=== PATIENT | male | born 1990 | race Caucasian/White ===

== ENCOUNTER 2021-07-06 08:37 | Outpatient (CLI) | payer BC, SELFPAY ==
[2021-07-06 20:06] LABS: Cholesterol 236 mg/dL (0-200); HDL Direct 51 mg/dL; Triglycerides 139 mg/dL (<150)
[2021-07-06 20:16] LABS: LDL Cholesterol Direct 130 mg/dL
[2021-07-08 21:38] LABS: CRP, High Sensitivity 0.4 mg/L (***)
== END 2021-07-06 08:38 | disposition home or self-care (01) ==
PROVIDERS: PCP Family Medicine; Visit Provider Family Medicine
DX: Z00.00 Encounter for general adult medical examination without abnormal findings (principal); E78.5 Hyperlipidemia, unspecified; Z82.49 Family history of ischemic heart disease and other diseases of the circulatory system; R19.7 Diarrhea, unspecified
CPT/HCPCS: 36415; 80061; 86141

== ENCOUNTER 2021-07-08 11:02 | Outpatient (CLI) | payer BC, SELFPAY ==
[2021-07-08 21:42] LABS: IFOB Positive Control Positive; Immunochemical Fecal Occult Bl Negative (N)
[2021-07-12 17:40] LABS: Lactoferrin, Stool Negative (Negative)
== END 2021-07-08 11:03 | disposition home or self-care (01) ==
PROVIDERS: PCP Family Medicine; Visit Provider Family Medicine
DX: R19.7 Diarrhea, unspecified (principal); E78.5 Hyperlipidemia, unspecified; Z00.00 Encounter for general adult medical examination without abnormal findings
CPT/HCPCS: 82274; 83630; 87045; 87269; 87324; 87427; 89055

== ENCOUNTER 2021-08-11 01:20 | Day surgery (SDC) | payer BC, SELFPAY ==
[2021-08-02 13:20] VITALS: BMI 22.0
--- NOTE | 2021-08-02 13:27 | PC.NURSE ---
Report to the Outpatient Waiting Room, entrance under the green pavilion located off [facility], at time ___0900____ on date _08/11/21 . OR Time: ___1099 . - You and your visitor will be asked a series of questions to screen for COVID 19 for your protection. - A mask is required within the hospital. Preoperative COVID Testing Requirements: NONE No COVID Test needed if: (proof is required; if not received patient will have Rapid Test prior to entry) - Patient has received COVID Vaccine at least 14 days prior to procedure date or - Patient has positive COVID test result within last 90 days of surgery date. COVID Test needed if above criteria is not met If not COVID vaccinated a COVID test must be conducted within 72 hours of surgery and patient is asked to isolate self from time of testing until procedure. You will go to the [facility] for your COVID testing. The [facility] is located at the corner of [address] [facility]. You will only be called if COVID results are positive and your surgeon may reschedule your elective surgery date. Patients may have clear liquids (water, carbonated beverages, clear teas, apple juice) until 3 hours prior to surgery (0800 AM) with a maximum of 20 ounces. - No food from midnight until time of surgery - Infants may have breast milk until 4 hours before surgery, formula 6 hours prior to surgery. - Children will be allowed to drink immediately following surgery. If applicable, please bring a bottle or sippy cup to assist with drinking. Juice, water, soda, and popsicles are readily available. For infants on formula, please bring formula the day of surgery. Pacifiers are allowed. Take the following medications with a SIP of water the morning of surgery: ____N/A Medications to discontinue per physician N/A Date to take last dose Please no make-up, nail lao, hairspray, perfume, deodorant, or body powder the day of surgery. No jewelry (including any body piercings) or valuables the day of surgery, leave them at home. Please take a shower or bath the night before, or the morning of, surgery with an antibacterial soap. Wear comfortable, loose fitting clothing. Children are encouraged to wear pajamas. - Jewelry must be removed prior to entering the operating room. Rings and piercings that are not removed may be cut off. - The hospital will not accept responsibility for valuables. - Please leave all valuables, including medications, at home the day of surgery. If you are going home after surgery, a licensed test driver must drive you home. - NO public transportation without another adult. - We recommend that an adult stay with you for 24 hours following discharge. - We also recommend that you do not drive, make important decision, drink alcoholic beverages, or take any drugs that were not prescribed by your health care provider for at least 24 hours after your discharge time. For Pediatric surgeries, we recommend two adults accompany the child home (only one inside the building at this time). One visitor will be allowed to accompany the patient into the hospital. Patients visitor will be instructed to remain with patient at all times or leave the building. We will allow the visitor to come back to the postoperative area when patient is ready. Follow any additional instructions given to you from your surgeon. Telephone instructions given to ___PT and asked if any additional questions and then verbalized understanding. Patient advised to call surgeon office or pre surgery nurse liaison [phone] if any additional questions.
[2021-08-11] VITALS (9 sets, daily range): BP systolic 92–127; BP diastolic 54–72; PULSE 70–98; RESP 16–18; TEMP 36.4–36.5; O2SAT 99–100
[2021-08-11] MEDS: LACTATED RINGERS 1,000 ML 30 ML IV CONT ×2 (10:39→13:14)
--- NOTE | 2021-08-11 11:33 | P.PNAN_ITS ---
Anes - Initial Pre Proc Eval Procedure: Operation Date: 08/11/21 12:00 Proposed Procedures p Excision of Complicated Pilonidal Cyst - Bruce Pierre DO Date/Time: 08/11/21 11:33 Surgeon: Bruce Pierre DO Pre Op Diagnosis: pilonidal cyst Patient Data Age: 31 Gender: M Height: 1.83 m Weight: 74.8 kg Last Vital Signs Temp 36.4 C L 08/11/21 10:15 Pulse 89 08/11/21 10:15 Resp 16 08/11/21 10:15 BP 127/72 08/11/21 10:15 Pulse Ox 99 08/11/21 10:15 Allergies Allergy/AdvReac Type Severity Reaction Status Date / Time No Known Allergies Allergy Verified 08/11/21 10:07 Home Medications Medication Instructions Recorded Confirmed Type No Home Medications 08/02/21 08/11/21 History Patient hx anesthesia problems: none Family hx anesthesia problems: none Results Review: All pre-operative results and documents have been reviewed as part of the pre-operative evaluation. [facility] Past Medical History Medical History Smoker Family History Family History Mother Heart disease Hypertension Grandparent Diabetes mellitus Lymphoma Social History Social History Smoking packs per day: 1 Smoking cigarettes per day: 20.0 Years smoked: 16 Smoking pack-years: 16.00 Smoking status: Current every day smoker Tobacco type: cigarettes Second hand tobacco smoke exposure: Yes Alcohol intake: current Drinks per week: 4 Alcohol use details: social Substance use: never Substance use type: does not use Living arrangements: with family Additional living arrangements comments: LIVES WITH [facility] BRUCE ROBERTO [phone] Additional occupation/education comments: [email or web address] Spiritual care concerns: No Anes - Eval Final PreProcedure Day of Procedure 08/11/21 11:33 Patient weight: normal Heart: regular rate and rhythm Lungs: clear to auscultation Airway: Mallampati scale class II Neurological: alert and oriented Last oral intake: >/= 8 hours ASA classification: II Emergent: no Anesthetic plan: proceed Anesthesia type and monitoring: general ETT and standard monitoring Results Review: All pre-operative results and documents have been reviewed as part of the pre-operative evaluation. Informed Consent: The patient's anesthetic plan and its attendant risks and toño efits were discussed with the patient/family/POA. Questions were solicited and answers provided to the satisfaction of the patient/family/POA.
--- NOTE | 2021-08-11 11:39 | WPDHPUPDATE1 ---
History and Physical Update Update Date/Time: 08/11/21 11:39 History and Physical has been reviewed, including an updated exam of the patient. There are NO changes in the patient's condition. Risks, benefits, and alternatives have been discussed and questions answered. Patient agrees to proceed with procedure.
--- NOTE | 2021-08-11 11:40 | PM.IMHP ---
H&P: HPI History of Present Illness Date/Time: 08/11/21 11:40 Chief Complaint: Pilonidal cyst Narrative: This is a 31-year-old man who presents for excision of pilonidal cyst. He denies any changes since last seen in the office. Review of Systems Review of Systems: All systems reviewed & are unremarkable except as noted in HPI and below Constitutional: Constitutional: Denies chills, Denies fever(s), Denies headache(s) and Denies weight loss Eyes: Eyes: Denies change in vision ENT: Denies dizziness, Denies headache(s), Denies neck mass and Denies throat swelling Cardiovascular: Cardiovascular: Denies chest pain, Denies lightheadedness and Denies dyspnea Respiratory: Respiratory: Denies cough, Denies dyspnea and Denies wheezing Gastrointestinal: Gastrointestinal: Denies abdominal pain, Denies change in bowel habits, Denies nausea and Denies vomiting Genitourinary: Genitourinary: Denies hematuria and Denies dysuria Musculoskeletal: Musculoskeletal: Reports as per HPI Integumentary/Breasts: Skin/Breast: Reports as per HPI Neurologic: Denies dizziness and Denies headache(s) Allergic/Immunologic: Allergic/Immunologic: Denies throat swelling and Denies wheezing PMF Past Medical History Medical History Smoker Family History Family History Mother Heart disease Hypertension Grandparent Diabetes mellitus Lymphoma Social History Social History Smoking packs per day: 1 Smoking cigarettes per day: 20.0 Years smoked: 16 Smoking pack-years: 16.00 Smoking status: Current every day smoker Tobacco type: cigarettes Second hand tobacco smoke exposure: Yes Alcohol intake: current Drinks per week: 4 Alcohol use details: social Substance use: never Substance use type: does not use Living arrangements: with family Additional living arrangements comments: LIVES WITH [facility] [employer] MARK ROBERTO [phone] Additional occupation/education comments: [employer] care concerns: No Meds Home Medications and Allergies Home Medications Medication Instructions Recorded Confirmed Type No Home Medications 08/02/21 08/11/21 History Allergies Allergy/AdvReac Type Severity Reaction Status Date / Time No Known Allergies Allergy Verified 08/11/21 10:07 Vital Signs Vital Signs - 24 hr 08/11/21 10:15 Temperature 36.4 C L Pulse Rate 89 Respiratory Rate 16 Blood Pressure 127/72 Pulse Oximetry 99 Exam Const: General: no acute distress and alert Orientation/consciousness: patient oriented x3 HENMT: Head: normocephalic and atraumatic Ears: hearing grossly normal bilaterally General nose exam: Normal nares present Mouth: Yes Normal oral and palatal mucosa present Eyes: Periorbital: periorbital findings normal Sclera: sclerae normal EOM: EOMs intact bilaterally Neck: Neck: normal visual inspection, no lymphadenopathy and trachea midline Chest: Chest palpation & inspection: normal inspection of the chest Resp: Effort & Inspection: normal respiratory effort Auscultation: clear to auscultation bilaterally Cardio: Jugular venous distension: no JVD Rate: regular rate Rhythm: regular rhythm Heart sounds: S1 normal heart sound present and S2 normal heart sound present Peripheral pulses: Peripheral pulses 2+ throughout GI: Inspection: normal to inspection GI Palp: Yes Soft to palpation, No Tenderness to palpation present (GI), No Guarding due to palpation present (GI) and No Rebound tenderness present Percussion: Yes normal to percussion Auscultation: normal bowel sounds : General: Yes no CVA tenderness Back/Spine/Pelvis: Back: no CVA tenderness Skin: Other: Pilonidal cyst with small sinus tract in the midline intergluteal cleft Neuro: General: patient oriented x3, no focal motor deficits and CN's II-XI intact bilaterally Cognition (Neuro
[2021-08-11] MEDS: ceFAZolin 2 GM/D5W 50 ML 2 GM/50 ML BAG IVPB (11:59)
[2021-08-11] MEDS: LIDO 1%/EPINEPHRINE/PF 1:200,000 30 ML VIAL XX (12:37)
--- NOTE | 2021-08-11 13:15 | P.OP_ITS ---
Procedure Note - Detailed Date of Procedure 08/11/21 Pre-op Diagnosis pilonidal cyst Post-op Diagnosis Same Procedure Performed Excision of complicated pilonidal cyst Surgeon Bruce Pierre, DO Anesthesia General and Local ( 0.5% bupivacaine with epinephrine) Indications This is a 31-year-old man who presented with a pilonidal cyst that has been present for the past 2-3 years. He has intermittent swelling and drainage in the area. He has not had an excision in the past. On exam he was noted to have multiple small sinus tracts in the midline intergluteal cleft and 2 areas of intermittent abscess formation in the left upper side of the cleft and lower left side near the anus. Discussions were made with the patient about treatment options and decision was made to proceed with excision of the complicated pilonidal cyst. Findings Excision of complicated pilonidal cyst was performed. The patient was found to have multiple sinus tracts and 2 areas of chronic cyst formation. There was some scant purulence drainage from 1 of the sinus tracts, but no other open wounds or sign of large abscess. A wide elliptical incision was made to encompass the entire area that was involved with a pilonidal cyst. This measured about 16-18 cm in length. The specimen was completely excised and sent to the lab for pathology. Description of Procedure Procedure as well as risks, benefits, and alternatives were discussed with the patient. Written consent was obtained and placed in chart prior to procedure. Patient was brought back to surgical suite. He was placed supine on operating table. Time-out was done to confirm patient and procedure. He was then intubated by the Anesthesia Department. He was then repositioned to prone jorge luis- knife position on the operating table. His sacral region was prepped and draped in sterile fashion using Betadine prep. 0.5% bupivacaine with epinephrine was infiltrated locally around the pilonidal cyst. Lacrimal probes were used to identify the sinus tracts and probed for the directions that they were tracking. An elliptical incision was then made using a 10 blade scalpel to encompass the entire area. Electrocautery was used for hemostasis and for dissection down deep to the cyst cavity. Careful dissection was made around the entire cyst to excise it completely intact. The cyst was completely removed and sent to the lab for pathology. The wound bed was then inspected. Hemostasis was achieved with electrocautery. A 0.5% bupivacaine with epinephrine was infiltrated deep in the cavity. The wound bed was then irrigated with sterile saline. No other abnormalities were noted. The deep tissue was then reapproximated using 0 Vicryl simple interrupted sutures. The skin edges were then reapproximated using #1 and 3-0 Prolene vertical mattress interrupted sutures placed approximately 1 cm apart. Fluff gauze, ABD pad, and Medipore tape were then applied. The patient was then awakened from anesthesia, extubated, and transferred to recovery. Estimated Blood Loss 20 Packing No Pathology Yes ( pilonidal cyst) Complications No immediate complications Condition Stable Disposition Same day
[2021-08-11] MEDS: fentaNYL CITRATE INJ (*CRX) 100 MCG/2 ML VIAL 25 MCG IV PUSH ×2 (14:00→14:03)
[2021-08-11] MEDS: oxyCODONE HCL (*CRX) 5 MG TAB IR PO (14:34)
== END 2021-08-11 15:15 | disposition home or self-care (01) ==
PROVIDERS: PCP Family Medicine; Visit Provider Surgery
PROC: (CPT 11772; principal; 2021-08-11 12:00)
DX: L05.91 Pilonidal cyst without abscess (principal); F17.210 Nicotine dependence, cigarettes, uncomplicated
CPT/HCPCS: 11772; 88305; A9270; J0330; J0690; J1100; J2250; J2405; J2704; J3010; J7120

== ENCOUNTER 2022-02-10 13:12 | Outpatient (CLI) | payer BC, SELFPAY ==
[2022-02-10 18:38] LABS: Basophils Absolute Auto 0.1 K/mm3 (0.0-0.1); Basophils Percent Auto 0.6 % (0.2-1.2); Eosinophils Absolute Auto 0.2 K/mm3 (0-0.3); Eosinophils Percent Auto 1.7 % (0-4.4); Hematocrit 48.5 % (42.0-52.0); Hemoglobin 16.6 g/dL (14.0-18.0); Immature Granulocyte Absolute 0.04 K/mm3 (0.00-0.031); Immature Granulocyte Percent A 0.4 % (0-0.5); Lymphocytes Absolute Auto 3.05 K/mm3 (0.9-3.2); Lymphocytes Percent Auto 28.5 % (18.3-44.2); Mean Corpuscular HGB Conc 34.2 g/dl (32-36); Mean Corpuscular Hemoglobin 30.5 pg (26-34); Mean Platelet Volume 9.5 fl (7.4-10.4); Monocytes Absolute Auto 0.9 K/mm3 (0.1-0.6); Monocytes Percent Auto 8.5 % (2.6-8.5); Neutrophils Absolute Auto 6.5 K/mm3 (1.3-6.7); Neutrophils Percent Auto 60.3 % (45.5-73.1); Platelet Count Result 303 k/mm3 (150-375); Red Blood Count 5.45 M/mm3 (4.6-6.20); Red Cell Distribution Width 12.1 % (11.5-14.5); White Blood Count 10.7 K/mm3 (4.5-10.0)
[2022-02-10 20:22] LABS: Alanine Aminotransferase 87 U/L (6-50); Albumin Level 4.8 g/dL (3.5-5.1); Alkaline Phosphatase 88 U/L (38-126); Anion Gap 15 mmol/L (8-16); Aspartate Amino Transferase 97 U/L (17-59); Bilirubin,Total 0.6 mg/dL (0.2-1.3); Blood Urea Nitrogen 10 mg/dL (9-20); Calcium 9.4 mg/dL (8.4-10.2); Carbon Dioxide 24 mmol/L (22-30); Chloride 104 mmol/L (98-107); Estimated Glomerular Filt Rate > 60; Glucose 90 mg/dL (65-110); Potassium 3.9 mmol/L (3.4-5.0); Sodium 143 mmol/L (137-145)
== END 2022-02-10 13:13 | disposition home or self-care (01) ==
LOC: ANHBWCLAB 13:13
PROVIDERS: PCP Family Medicine; Visit Provider Family Medicine
DX: G43.909 Migraine, unspecified, not intractable, without status migrainosus (principal)
CPT/HCPCS: 36415; 80053; 85025

== ENCOUNTER → 2022-03-14 12:22 | Outpatient (CLI) | payer BC, SELFPAY ==
--- NOTE | ~2022-03-14 | MR_ITS ---
EXAMINATION: MR brain/brain stem wo/w con DATE: 03/14/2022 13:03 INDICATION: Severe headache. TECHNIQUE: Magnetic resonance imaging (MRI) of the brain and brainstem was performed without and with 15 mL MultiHance intravenous contrast. COMPARISON: None. FINDINGS: There is a focus of increased T2-weighted signal intensity in the left frontal lobe deep wh ite matter, which is normal as an isolated finding. There is no acute ischemic infarct or intracrania l hemorrhage. The ventricles are normal in size. The orbits are normal. There is mild mucosal thicken ing in the ethmoid sinuses. The mastoid air cells are normal. IMPRESSION: 1. Normal brain. Reviewed, dictated and finalized at location A. E ACTOR IMPRESSION: 1. Normal brain.
== END ==
PROVIDERS: PCP Family Medicine; Visit Provider Student in an Organized Health Care Education/Training Program
DX: R51.9 Headache, unspecified (principal)
CPT/HCPCS: 70553; A9577

== ENCOUNTER 2022-04-12 01:18 | Day surgery (SDC) | payer BC, SELFPAY ==
[2022-03-30 14:51] VITALS: BMI 23.1
[2022-04-12 12:48] VITALS: BP 131/81; PULSE 91; RESP 18; TEMP 36; O2SAT 100; BMI 23.3
[2022-04-12] MEDS: LACTATED RINGERS 1,000 ML 150 ML IV CONT (13:03)
--- NOTE | 2022-04-12 13:04 | WPDANESEPPF ---
Anes - Initial Pre Proc Eval Procedure: Operation Date: 04/12/22 14:00 Proposed Procedures p Colonoscopy - Rodrigo Piedra MD Date/Time: 04/12/22 13:04 Surgeon: Rodrigo Piedra MD Pre Op Diagnosis: gastritis and colitis Patient Data Age: 32 Gender: M Height: 1.83 m Weight: 78.1 kg Last Vital Signs Temp 36.0 C L 04/12/22 12:48 Pulse 91 04/12/22 12:48 Resp 18 04/12/22 12:48 BP 131/81 04/12/22 12:48 Pulse Ox 100 04/12/22 12:48 O2 Del Method Room Air 04/12/22 12:48 Allergies Allergy/AdvReac Type Severity Reaction Status Date / Time No Known Allergies Allergy Verified 04/12/22 12:52 Home Medications Medication Instructions Recorded Confirmed Type bupropion HCl 150 mg 24 hr tablet, 150 mg PO QAM #90 tabs 02/10/22 04/12/22 Rx extended release (Wellbutrin XL) verapamil 40 mg tablet 40 mg PO TID #120 tabs 02/22/22 04/12/22 Rx rizatriptan 10 mg tablet (Maxalt) See Rx Instructions PO .COMPLEX 03/01/22 04/12/22 Rx #30 tabs tumeric 100 mg-eduardo 150 mg-olive 1 - 3 cap PO DAILY 03/30/22 04/12/22 History 50 mg-oreg 150 mg-caprylate capsule Patient hx anesthesia problems: none Family hx anesthesia problems: none Results Review: All pre-operative results and documents have been reviewed as part of the pre-operative evaluation. [facility] Past Medical History Medical History Smoker Surgical History Surgical History History of excision of pilonidal cyst Excision of complicated pilonidal cyst 08/11/21 Family History Family History Mother Heart disease Hypertension Grandparent Diabetes mellitus Lymphoma Social History Social History Smoking packs per day: 1 Smoking cigarettes per day: 20.0 Years smoked: 15 Smoking pack-years: 15.00 Smoking status: Current every day smoker Tobacco type: cigarettes Second hand tobacco smoke exposure: Yes Additional smoking assessment comments: TAKING BUPROPION FOR SMOKING CESSATION Alcohol intake: current Drinks per week: 4 Alcohol use details: social Substance use: never Substance use type: does not use Living arrangements: with family Additional living arrangements comments: LIVES WITH [facility] [employer] MARK ROBERTO [phone] Additional occupation/education comments: [employer] Spiritual care concerns: No Anes - Eval Final PreProcedure Day of Procedure 04/12/22 13:04 Patient weight: normal Heart: regular rate and rhythm Lungs: clear to auscultation and normal air movement Airway: Mallampati scale class II Neurological: alert and oriented Last oral intake: >/= 8 hours ASA classification: II Emergent: no Anesthetic plan: proceed Anesthesia type and monitoring: general GIVS and standard monitoring Results Review: All pre-operative results and documents have been reviewed as part of the pre-operative evaluation. Informed Consent: The patient's anesthetic plan and its attendant risks and benefits were discussed with the patient/family/POA. Questions were solicited and answers provided to the satisfaction of the patient/family/POA.
--- NOTE | 2022-04-12 13:37 | PM.HPGS ---
History of Present Illness History of Present Illness Consent: Risks, benefits, and alternatives have been discussed and questions answered. Patient agrees to proceed with procedure. Chief complaint: gastritis and colitis Narrative: Ras Herr is a 32 year old male with intermittent diarrhea for 1 year, never had colonoscopy. Review of Systems Constitutional: Constitutional: Denies headache(s) and Denies weakness Eyes: Eyes: Denies blurry vision ENT: Reports Normal hearing present, Denies headache(s) and Denies neck pain Cardiovascular: Cardiovascular: Denies chest pain and Denies dyspnea Respiratory: Respiratory: Denies dyspnea Gastrointestinal: Gastrointestinal: Reports no additional gastrointestinal complaints Genitourinary: Genitourinary: Denies dysuria Musculoskeletal: Musculoskeletal: Denies neck pain Integumentary/Breasts: Skin/Breast: Denies dry skin Neurologic: Reports Normal hearing present, Denies headache(s) and Denies weakness Psychiatric: Psychiatric: Denies anxiety Endocrine: Endocrine: Denies change in body appearance Hematologic/Lymphatic: Hematologic/Lymphatic: Denies easy bleeding Allergic/Immunologic: Allergic/Immunologic: Denies urticaria PMFSH Past Medical History Medical History Smoker Surgical History Surgical History History of excision of pilonidal cyst Excision of complicated pilonidal cyst 08/11/21 Family History Family History Mother Heart disease Hypertension Grandparent Diabetes mellitus Lymphoma Social History Social History Smoking packs per day: 1 Smoking cigarettes per day: 20.0 Years smoked: 15 Smoking pack-years: 15.00 Smoking status: Current every day smoker Tobacco type: cigarettes Second hand tobacco smoke exposure: Yes Additional smoking assessment comments: TAKING BUPROPION FOR SMOKING CESSATION Alcohol intake: current Drinks per week: 4 Alcohol use details: social Substance use: never Substance use type: does not use Living arrangements: with family Additional living arrangements comments: LIVES WITH [employer] MARK ROBERTO [phone] Additional occupation/education comments: [employer] care concerns: No Meds Home Medications and Allergies Home Medications Medication Instructions Recorded Confirmed Type bupropion HCl 150 mg 24 hr tablet, 150 mg PO QAM #90 tabs 02/10/22 04/12/22 Rx extended release (Wellbutrin XL) verapamil 40 mg tablet 40 mg PO TID #120 tabs 02/22/22 04/12/22 Rx rizatriptan 10 mg tablet (Maxalt) See Rx Instructions PO .COMPLEX 03/01/22 04/12/22 Rx #30 tabs tumeric 100 mg-eduardo 150 mg-olive 1 - 3 cap PO DAILY 03/30/22 04/12/22 History 50 mg-oreg 150 mg-caprylate capsule Allergies Allergy/AdvReac Type Severity Reaction Status Date / Time No Known Allergies Allergy Verified 04/12/22 12:52 Vital Signs Vital Signs - 24 hr 04/12/22 12:48 Temperature 96.8 F L Pulse Rate 91 Respiratory Rate 18 Blood Pressure 131/81 Pulse Oximetry 100 Oxygen Delivery Room Air Exam Const: General: comfortable and no acute distress HENMT: Face/Nose/Sinus: Normal nares present Eyes: General: appearance normal, both eyes and all related structures Neck: Neck: no JVD Resp: Auscultation: clear to auscultation bilaterally Cardio: Rate: regular rate Rhythm: regular rhythm GI: Inspection: non-distended GI Palp: Yes Soft to palpation Skin: General skin exam: normal color Neuro: General: gait normal Speech: normal speech Extrem: General: normal to inspection Psych: Mental Status: mental status grossly normal Assessment and Plan Assessment and plan (1) Chronic diarrhea: Code(s): K52.9 - Noninfective gastroenteritis and colitis, unspecified Status: Acute Assessment
[2022-04-12 13:55] VITALS: BP 113/78; PULSE 75; RESP 22; O2SAT 99
[2022-04-12 14:05] VITALS: BP 114/80; PULSE 77; RESP 20; O2SAT 100
[2022-04-12 14:15] VITALS: BP 116/76; PULSE 70; RESP 18; O2SAT 100
== END 2022-04-12 14:34 | disposition home or self-care (01) ==
PROVIDERS: PCP Family Medicine; Visit Provider Internal Medicine Gastroenterology
PROC: 0DJD8ZZ Inspection of Lower Intestinal Tract, Via Natural or Artificial Opening Endoscopic (ICD-10-PCS; CPT 45378; principal; 2022-04-12 14:00)
DX: R19.7 Diarrhea, unspecified (principal); F17.210 Nicotine dependence, cigarettes, uncomplicated
CPT/HCPCS: 45380; 88305; J2704; J7120

== ENCOUNTER 2022-12-02 12:07 | Outpatient (CLI) | payer BC, SELFPAY ==
--- NOTE | ~2022-12-02 | XR_ITS ---
EXAMINATION: XR abdomen obstructive series DATE: 12/02/2022 12:33 INDICATION: Abdominal pain TECHNIQUE: Supine and upright views of the abdomen. FINDINGS: No prior studies for comparison. The visualized lung parenchyma is normal.. There is a nonobstructive bowel gas pattern. Gas and stool are seen throughout the colon to the level of the rectum. There is no free air. IMPRESSION: 1. No acute abdominal abnormality. Reviewed, dictated and finalized at location A.
[2022-12-02 18:23] LABS: Basophils Absolute Auto 0.1 K/mm3 (0.0-0.1); Basophils Percent Auto 0.7 % (0.2-1.2); Eosinophils Absolute Auto 0.2 K/mm3 (0-0.3); Hematocrit 51.3 % (42.0-52.0); Hemoglobin 17.1 g/dL (14.0-18.0); Immature Granulocyte Absolute 0.03 K/mm3 (0.00-0.031); Immature Granulocyte Percent A 0.3 % (0-0.5); Lymphocytes Absolute Auto 2.59 K/mm3 (0.9-3.2); Lymphocytes Percent Auto 26.1 % (18.3-44.2); Mean Corpuscular HGB Conc 33.3 g/dl (32-36); Mean Corpuscular Hemoglobin 30.5 pg (26-34); Mean Corpuscular Volume 91.4 fl (80-100); Monocytes Absolute Auto 0.8 K/mm3 (0.1-0.6); Monocytes Percent Auto 7.9 % (2.6-8.5); Neutrophils Absolute Auto 6.3 K/mm3 (1.3-6.7); Platelet Count Result 274 k/mm3 (150-375); Red Blood Count 5.61 M/mm3 (4.6-6.20); Red Cell Distribution Width 12.2 % (11.5-14.5); White Blood Count 9.9 K/mm3 (4.5-10.0)
[2022-12-02 18:37] LABS: Appearance Urine Clear (Clear); Bilirubin Urine Negative (Negative); Blood Urine Negative (Negative); Color Urine Yellow (Yellow); Glucose Urine UA Negative (Negative); Ketones Urine Negative (Negative); Leukocyte Esterase Ur Negative LEU/UL (NEGATIVE); Nitrate Urine Negative (Negative); Protein Urine Negative (Negative); Specific Grav Ur 1.024 (1.001-1.035); Urobilinogen Urine 0.2 mg/dL (<2.0); pH Urine 5.5 (5.0-9.0)
[2022-12-02 18:53] LABS: Add Urine Microscopic? NO
[2022-12-02 18:58] LABS: Alanine Aminotransferase 76 U/L (6-50); Albumin Level 4.7 g/dL (3.5-5.1); Alkaline Phosphatase 73 U/L (38-126); Aspartate Amino Transferase 47 U/L (17-59); Bilirubin,Total 0.6 mg/dL (0.2-1.3)
[2022-12-02 19:07] LABS: Hepatitis B Surface Antigen Negative (Negative)
[2022-12-02 19:13] LABS: HAV RESULT Negative (Negative); Hepatitis B Core IgM Result Negative (Negative)
[2022-12-02 19:25] LABS: Hepatitis C Virus Antibody Negative (Negative)
== END 2022-12-02 12:08 | disposition home or self-care (01) ==
PROVIDERS: PCP Family Medicine; Visit Provider Family Medicine
DX: R10.9 Unspecified abdominal pain (principal); R19.7 Diarrhea, unspecified; K59.00 Constipation, unspecified; R74.8 Abnormal levels of other serum enzymes
CPT/HCPCS: 36415; 74019; 80074; 80076; 81003; 85025

== ENCOUNTER 2024-12-31 10:28 | Outpatient (CLI) | payer OTHER, SELFPAY ==
--- OUTSIDE RECORDS SUMMARY | 2024-12-31 11:00 | XMS_ITS | Clinical Summary ---
Author Organization [facility] Address [address] [place] [address] Care Team Providers Care Event Planning Manager Name Role Phone Dayne Sloan MD Primary Care Provider [phone] Allergies No known active allergies Medications oxyCODONE-aceta minophen (PERCOCET) 5-325 mg per tabletIndicatio ns:Pain Take 1-2 tablets by mouth every 4 (four) hours as needed for pain 20 tablet Active Additional Information Patient not taking.Reported on 01/13/2022 HYDROcodone-zhao taminophen (NORCO) 5-325 mg per tabletIndicatio ns:Pain Take 1 tablet by mouth every 4 (four) hours as needed for pain 18 tablet 2 Active Additional Information Patient not taking.Reported on 01/13/2022 Active Problems Problem Noted Date Diagnosed Date Acute appendicitis 12/31/2021 Surgical History Surgery Date Site/Laterality Comments APPENDECTOMY 12/31/2021 Family History Medical History Relation Name Comments Heart disease Mother Relation Name Status Comments Mother Social History Tobacco Use Types Packs/Day Years Used Date Smoking Tobacco: Every Day Smokeless Tobacco: Never Tobacco Cessation:Ready to Q uit: Not Asked; Counseling Given: Not Answered Sex and Gender Information Value Date Recorded Sex Assigned at Not on file 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 Gender Identity Not on file Sexual Orientation Santana 06/11/2021 4: 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 Obstetrics History Last Filed Vital Signs Vital Sign Reading Time Taken Comments Blood Pressure 112/74 01/13/2022 3:01 PM CDT Pulse 92 01/13/2022 3:01 PM CDT Temperature 36.2 C (97.1 F) 01/13/2022 3:01 PM CDT Respiratory Rate 16 12/31/2021 11:4 9 AM CDT Oxygen Saturation 95% 01/13/2022 3:01 PM CDT Inhaled Oxygen Concentration - - Weight 79.3 kg (174 lb 12.8 oz) 01/13/2022 3:01 PM CDT Height 182.9 cm (6') 01/13/2022 3:01 PM CDT Body Mass Index 23.71 01/13/2022 3:01 PM CDT Plan of Treatment Health Maintenance Due Date Last Done Comments Depression Screening 1988 Hepatitis C Screening 1988 Varicella Vaccines (1 of 2 - 13+ 2-dose series) 02/15/2001 Hepatitis B Screening 02/15/2006 Regular Well Visit/Exam 18-64 02/15/2006 Pneumococcal vaccine <65 (1 of 2 - PCV) 02/15/2007 HPV Vaccines (1 - 3-dose SCDM series) 02/15/2015 Covid-19 Vaccine (3 - season) 01/07/202403/2021, 12/18/2020 Influenza Vaccine (#1) 2025 DTaP/Tdap/Td Vaccine (2 - Td or Tdap) 06/04/2026 Insurance [employer] OOS Care Teams Event Planning Manager Relationship Specialty Start Date End Date Dayne Sloan MD [facility] - General 12/31/21
--- OUTSIDE RECORDS SUMMARY | 2024-12-31 11:00 | XMS_ITS | Clinical Summary ---
Author Organization [facility] Address [address] [place] [address] Care Team Providers Care Peanut Cleaner Name Role Phone Dayne Sloan MD Primary Care Provider [phone] Source Comments [facility],non-owned Affiliates and Associated Physician Practices is amultiple site organization consisting of ambulatory clinics and hospital sitesin [place], [place], [place] and [place]. This disclosure is being madepursuant to the Care Everywhere program and may not contain all information available regarding this patient. 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 SEALING INSPECTOR Gender Identity Not on file Sexual Orientation Not on file Last Filed Vital Signs Vital Sign Reading Time Taken Comments Blood Pressure 133/85 06/04/2016 2:08 AM BOX SEALING INSPECTOR Pulse 99 06/04/2016 4:43 AM BOX SEALING INSPECTOR Temperature 36.7 C (98.1 F) 06/04/2016 2:08 AM BOX SEALING INSPECTOR Respiratory Rate 18 06/04/2016 2:08 AM BOX SEALING INSPECTOR Oxygen Saturation 100% 06/04/2016 2:08 AM BOX SEALING INSPECTOR Inhaled Oxygen Concentration - - Weight 70.3 kg (155 lb) 06/04/2016 2:08 AM BOX SEALING INSPECTOR Height 182.9 cm (6') 06/04/2016 2:08 AM BOX SEALING INSPECTOR Body Mass Index 21.02 06/04/2016 2:08 AM BOX SEALING INSPECTOR Plan of Treatment Health Maintenance Due Date Last Done Comments HIV SCREENING 02/15/2003 HEPATITIS C SCREENING 02/11/2006 HEPATITIS B VACCINE (1 of 3 - 19+ 3-dose series) 02/15/2007 HPV VACCINE (1 - 3-dose SCDM series) 02/15/2015 COVID-19 VACCINE (1 - 2023-2 5 season) 2024 DEPRESSION SCREENING 05/08/2024 INFLUENZA VACCINE (#1) 2025 DTAP/TDAP/TD VACCINES (2 - T d or Tdap) 06/04/2026 06/04/2016 ZOSTER VACCINE (1 of 2) 02/15/2038 HIB VACCINE Aged Out No longer eligi ble based on patient's age to complete this topic MENINGOCOCCAL (Group B) VACC INE SHARED DECISION-MAKING Aged Out No longer eligibl e based on patient's age to complete this topic MENINGOCOCCAL GROUPS A/C/Y/W VACCINE Aged Out No longer eligible b ased on patient's age to complete this topic PNEUMOCOCCAL VACCINE Aged Out No long er eligible based on patient's age to complete this topic Care Teams Peanut Cleaner Relationship Specialty Start Date End Date Dayne Sloan MD [address] [place] [address] PCP - General 08/13/21
[2024-12-31 19:02] LABS: Hematocrit 47.5 % (42.0-52.0); Hemoglobin 15.7 g/dL (14.0-18.0); Mean Corpuscular HGB Conc 33.1 g/dl (32-36); Mean Corpuscular Hemoglobin 29.8 pg (26-34); Mean Corpuscular Volume 90.3 fl (80-100); Platelet Count Result 277 k/mm3 (150-375); Red Blood Count 5.26 M/mm3 (4.6-6.20); White Blood Count 10.9 K/mm3 (4.5-10.0)
[2024-12-31 19:14] LABS: Alanine Aminotransferase 42 U/L (6-50); Albumin Level 4.7 g/dL (3.5-5.1); Alkaline Phosphatase 70 U/L (38-126); Anion Gap 6 mmol/L (4-12); Aspartate Amino Transferase 57 U/L (17-59); Bilirubin,Total 0.5 mg/dL (0.2-1.3); Blood Urea Nitrogen 16 mg/dL (9-20); Calcium 9.3 mg/dL (8.4-10.2); Carbon Dioxide 28 mmol/L (22-30); Chloride 102 mmol/L (98-107); Cholesterol 236 mg/dL (0-200); Estimated Glomerular Filt Rate > 60; Glucose 100 mg/dL (65-110); HDL Direct 54 mg/dL; Potassium 4.6 mmol/L (3.4-5.0); Sodium 136 mmol/L (137-145); Total Protein 8.0 g/dL (6.3-8.2); Triglycerides 158 mg/dL (<150)
[2024-12-31 19:52] LABS: Thyroid Stimulating Hormone 2.740 uIU/mL (0.465-4.680)
== END 2024-12-31 10:29 | disposition home or self-care (01) ==
PROVIDERS: PCP Nurse Practitioner Adult Health; Visit Provider Nurse Practitioner Adult Health
DX: Z00.00 Encounter for general adult medical examination without abnormal findings (principal)
CPT/HCPCS: 36415; 80053; 80061; 84443; 85027